=== PATIENT | female | born 1970 | race Caucasian/White ===

== ENCOUNTER 2024-04-04 15:04 | Emergency (ER) | payer BC, SELFPAY ==
[2024-04-04 15:13] VITALS: BP 144/91
--- NOTE | 2024-04-04 15:19 | ED.GENMED ---
ED Provider Triage
<Bk Ziegler PA-C - Last Filed: 04/04/24 15:23>
-
Patient seen by provider in Triage?: Seen in Triage
53-year-old otherwise healthy female with urinary symptoms over the past several days. She notes persistent urge to go. She is not urinating with a large volume. There has been no fever. The pain does radiate to her low back. She also has
lower abdominal discomfort with this. Skin initially at family doctor her urinalysis was negative and urine culture was negative. It did note some blood in the urine.
Will check labs out front and urine. Ordered CT with IV contrast due to lower abdominal pain. She also notes she is now moving her bowels.
History of Present Illness
<Bk Ziegler PA-C - Last Filed: 04/04/24 15:23>
General
Chief Complaint: Urinary Symptoms
Time Seen by Provider: 04/04/24 20:31
<Christiano Thomas Jr., PA-C - Last Filed: 04/04/24 23:35>
General
Source: patient
Exam Limitations: none
Nursing documentation reviewed up to this point in time: agreed with
History of Present Illness
History of Present Illness:
53-year-old female past medical history of ADHD presenting to the emergency department today with concerns of 1-1/2 weeks of increased urination and discomfort with urination. She was seen by the primary care doctor a week ago started on
antibiotics but only took this for a few days with no improvement. She also was found to have some red blood cells in her urine. Denies any fever chest pain shortness of breath denies similar symptoms in the past.
Past History
<Bk Ziegler PA-C - Last Filed: 04/04/24 15:23>
Past History
ED Past Medical History: Other (Previous back strain)
Review of Systems
<Christiano Thomas Jr., PA-C - Last Filed: 04/04/24 23:35>
Review of Systems
Allergies reviewed?: Yes
All Other Systems: ROS reviewed and negative except as documented in HPI and ROS
Phy Exam
<Christiano Thomas Jr., PA-C - Last Filed: 04/04/24 23:35>
Physical Exam
Physical Exam:
GENERAL: Alert , in no apparent distress
EYE: pupils equal and reactive
NECK: Supple, no significant adenopathy.
ENT: o/p clr, mmm.
CARDIAC: Regular rate and rhythm .
LUNGS: Clear breath sounds bilaterally, no acute respiratory distress, no wheezes/rales/rhonchi
ABDOMEN: Soft, without focal tenderness, no r/g, no cvat
NEUROLOGICAL: Alert and oriented, no focal neuro deficits
SKIN: Warm and dry, skin intact.
MUSCULOSKELETAL: No edema, well perfused.
PSYCH: Normal and appropriate interaction.
Course
<Bk Ziegler PA-C - Last Filed: 04/04/24 15:23>
Orders/Labs/Results
Orders:
Orders
04/04/24 15:19
CT Abd/pelvis W Iv Cont Urgent
Comment:
Reason For Exam: lower abdominal pain, dysuria
04/04/24 15:24
Complete Blood Count/With Diff Urgent
Comprehensive Metabolic Panel Urgent
04/04/24 15:26
Urinalysis Reflex To Culture Urgent
Date Specimen was Collected: 04/04/24
Time Specimen was Collected: 15:25
Urine Microscopic Reflex Cult Urgent
04/04/24 22:53
Cephalexin Monohydrate [Keflex] 500 mg PO NOW STA
HydrOXYZINE [Atarax] 25 mg PO NOW STA
Phenazopyridine HCl [Pyridium] 200 mg PO NOW STA
Abnormal Lab Results
04/04/24 04/04/24
15:24 15:26
MPV 10.9 H fL
(7.4-10.4)
Monocytes % 9.5 H %
(1.7-9.3)
Urine Ketones Trace A
(Negative)
Ur Occult Blood Reflex 4+ A
(Negative)
Leukocyte Esterase Rfl Trace A
(Negative)
Urine RBC 70-80 A /HPF
(0-2)
Urine Bacteria (Reflex) Few A
(Negative)
04/04/24 15:24
04/04/24 15:24
Vital Signs
Initial and Last Documented VS:
Initial Vital Signs
Temp Pulse Resp BP Pulse Ox
97.7 F 83 16 144/91 100
04/04/24 15:13 04/04/24 15:13 04/04/24 15:13 04/04/24 15:13 04/04/24 15:13
Last Documented Vital Signs
Temp Pulse Resp BP Pulse Ox
97.5 F 63 16 101/66 96
04/04/24 18:09 04/04/24 18:09 04/04/24 15:13 04/04/24 23:01 04/04/24 23:15
<Christiano Thomas Jr., PA-C - Last Filed: 04/04/24 23:35>
Orders/Labs/Results
Orders:
Orders
04/04/24 15:19
CT Abd/pelvis W Iv Cont Urgent
Comment:
Reason For Exam: lower abdominal pain, dysuria
04/04/24 15:24
Complete Blood Count/With Diff Urgent
Comprehensive Metabolic Panel Urgent
04/04/24 15:26
Urinalysis Reflex To Culture Urgent
Date Specimen was Collected: 04/04/24
Time Specimen was Collected: 15:25
Urine Microscopic Reflex Cult Urgent
04/04/24 22:53
Cephalexin Monohydrate [Keflex] 500 mg PO NOW STA
HydrOXYZINE [Atarax] 25 mg PO NOW STA
Phenazopyridine HCl [Pyridium] 200 mg PO NOW STA
Abnormal Lab Results
04/04/24 04/04/24
15:24 15:26
MPV 10.9 H fL
(7.4-10.4)
Monocytes % 9.5 H %
(1.7-9.3)
Urine Ketones Trace A
(Negative)
Ur Occult Blood Reflex 4+ A
(Negative)
Leukocyte Esterase Rfl Trace A
(Negative)
Urine RBC 70-80 A /HPF
(0-2)
Urine Bacteria (Reflex) Few A
(Negative)
04/04/24 15:24
04/04/24 15:24
Vital Signs
Initial and Last Documented VS:
Initial Vital Signs
Temp Pulse Resp BP Pulse Ox
97.7 F 83 16 144/91 100
04/04/24 15:13 04/04/24 15:13 04/04/24 15:13 04/04/24 15:13 04/04/24 15:13
Last Documented Vital Signs
Temp Pulse Resp BP Pulse Ox
97.5 F 63 16 101/66 96
04/04/24 18:09 04/04/24 18:09 04/04/24 15:13 04/04/24 23:01 04/04/24 23:15
<Christiano Thomas Jr., PA-C - Last Filed: 04/04/24 23:35>
MDM/Problems Addressed
MDM/Problems Addressed:
53-year-old female presenting to the emergency department today with concerns of urinary symptoms over the past week and a half. Here she had red blood cells in her urine small amount of white blood cells. Patient did have a CT scan without
emergent findings. Patient generally well-appearing no distress patient was started on antibiotics and given medications to help with symptoms otherwise will follow-up with urology. Return precautions given.
<Christiano Thomas Jr., PA-C - Last Filed: 04/04/24 23:35>
*Critical Care Note
Total Time (30-74mins, 75-104mins- exclusive of procedures): Not Applicable
ED Attending Note
<Bk Ziegler PA-C - Last Filed: 04/04/24 15:23>
-
Portions of this chart may have been created with voice recognition software.� Occasional wrong word or��sound alike� substitutions may have occurred due to the inherent limitations of voice recognition software.
Discharge Plan
Departure
Patient Disposition: Home (Routine Discharge)
Date of Disposition: 04/04/24
Time of Disposition: 23:00
Patient with high blood pressure during this ER visit?: No
Condition: Good
Covid-19: Not Applicable
Discharge Problem:
Dysuria
Instructions: Urinary Tract Infection, Adult (DC), Blood in the Urine (Hematuria), Adult (DC)
Prescriptions:
New
phenazopyridine 95 mg tablet
190 mg PO TID PRN (Reason: Pain) Qty: 12 0RF
cephalexin 500 mg capsule
500 mg PO TID 5 Days Qty: 15 0RF
No Action
cyclobenzaprine 10 MG tablet
10 mg PO TIDPRN PRN (Reason: Pain) Qty: 20 0RF
tramadol 50 MG tablet
50 mg PO Q6HPRN PRN (Reason: Pain) Qty: 20 0RF
Referrals:
Uday Olmstead Jr., MD [Active] - Follow up in 5-7 days
Anant Alarcon DO [Family Provider] -
Activity Restrictions/Additional Instructions:
You came to the emergency department today with concerns of urinary symptoms. Here had a reassuring assessment with no signs of emergent pathology your urine did have some red blood cells. Unclear if this could represent a urinary tract infection.
You were started on Keflex. Please follow closely with urology. Return to the emergency department for any worsening, new or concerning symptoms.
Interventions
Interventions:
*Risk Screen - Suicide Last Done: 04/04/24 15:17
*General Assessment Last Done: 04/04/24 22:32
*Neglect/Abuse Screening Last Done: 04/04/24 15:17
ED- Fall Risk Assessment Last Done: 04/04/24 22:32
*ED COVID-19 Vaccine History Last Done: 04/04/24 22:32
*Nursing Disposition Last Done: 04/04/24 23:27
ED-Female Genitourinary Assessment Last Done: 04/04/24 20:52
Discharge Date and Time
Discharge Date/Time: 04/04/24 23:28
Print Language: KENYAN
[2024-04-04 15:50] LABS: % Basophils 0.4 % (0-2); % Eosinophils 1.4 % (0-6); % Lymphocytes 32.2 % (20.5-51.1); % Monocytes 9.5 % (1.7-9.3); % Neutrophils 56.5 % (42.2-75.2); Absolute Eosinophils 0.1 10^3/uL (0-0.7); Absolute Lymphocytes 1.6 10^3/uL (1.2-3.4); Absolute Monocytes 0.5 10^3/uL (0.1-0.6); Absolute Neutrophils 2.8 10^3/uL (1.4-6.5); Hemoglobin 14.5 g/dL (12.0-16.0); Mean Corp Hgb Conc. 34.5 g/dL (33.0-37.0); Mean Corpuscular Hgb 30.2 pg (27.0-31.0); Mean Corpuscular Volume 87.5 fL (81.0-99.0); Mean Platelet Volume 10.9 fL (7.4-10.4); Nucleated Red Blood Cells % 0 %; Platelet Count 267 10^3/uL (130-400); Red Cell Dist. Width 12.3 % (11.5-14.5)
[2024-04-04 16:07] LABS: ALT (SGPT) 13 U/L (0-35); AST (SGOT) 25 U/L (14-36); Alkaline Phosphatase 58 U/L (38-126); Blood Urea Nitrogen 14 mg/dl (7-17); Calcium 10.2 mg/dl (8.4-10.2); Carbon Dioxide 25 mmol/L (22-30); Chloride 101 mmol/L (98-107); Glucose 91 mg/dl (70-99); Potassium 4.2 mmol/L (3.5-5.1); Sodium 141 mmol/L (135-145); Total Bilirubin 0.7 mg/dl (0.2-1.3); Total Protein 7.7 g/dl (6.3-8.2); eGFR > 60.00
[2024-04-04 16:16] LABS: Urine Albumin Trace (Neg - Trace); Urine Bilirubin Negative (Negative); Urine Character Clear (Clear); Urine Color Yellow; Urine Glucose Negative (Negative); Urine Ketone Trace (Negative); Urine Leukocyte Trace (Negative); Urine Nitrite Negative (Negative); Urine Occult Blood 4+ (Negative); Urine Urobilinogen Negative (Neg - 1+)
[2024-04-04 16:57] LABS: Urine Bacteria Few (Negative); Urine Hyaline Cast 0-2 /LPF (0-2); Urine Red Blood Cell 70-80 /HPF (0-2); Urine Squamous Cell >30 /LPF (Few)
[2024-04-04 18:09] VITALS: BP 113/76
[2024-04-04 20:51] VITALS: BMI 23.0
[2024-04-04 22:31] VITALS: BP 120/89
[2024-04-04 23:01] VITALS: BP 101/66
[2024-04-04] MEDS: ATARAX 25 MG PO (23:17)
[2024-04-04] MEDS: Pyridium 200 MG PO (23:17)
[2024-04-04] MEDS: KEFLEX 500 MG PO (23:17)
== END 2024-04-04 23:28 | disposition home or self-care (01) ==
LOC: EMR 15:04
PROVIDERS: Physician Assistant; EMERGENCY PHYSICIAN Emergency Medicine; FAMILY PHYSICIAN Family Medicine
DX: R30.0 Dysuria (principal); F90.9 Attention-deficit hyperactivity disorder, unspecified type
CPT/HCPCS: 99284; 74177; 80053; 81003; 81015; 85025; Q9967

== ENCOUNTER 2024-04-12 11:11 | Emergency (ER) | payer BC, SELFPAY ==
--- NOTE | 2024-04-12 11:13 | ED.GENMED ---
ED Provider Triage
<Opal Alegre PA-C - Last Filed: 04/12/24 11:18>
-
Patient seen by provider in Triage?: Seen in Triage
Attestation: A medical screening examination has been initiated by a qualified medical provider. Based on the assessment performed at this time, it has been determined that an emergent medical condition may exist and the patient has been informed
that further medical evaluation and possible additional diagnostic testing may be needed.
HPI: 53yoF here with UTI symptoms x 3 weeks. Seen in the ED last week for the same and prescribed Keflex. CT at that time was negative for acute findings. PCP stopped abx after urine culture came back negative. States she has not urinated in 24
hours. Thinks she passed a kidney stone today.
GENERAL: Alert , in no apparent distress
EYE: No visual abnormalities.
NECK: Trachea midline
ENT: No visible abnormalities.
LUNGS: No acute respiratory distress
NEUROLOGICAL: Alert and oriented
SKIN: Skin intact. No visible changes.
MUSCULOSKELETAL: Moving extremities normally
PSYCH: Normal and appropriate interaction.
This is a medical evaluation conducted in person to initiate diagnostic evaluation and provide initial therapeutics. Please see further documentation by the treating clinician.
CBC, CMP, UA, and bladder scan ordered.
History of Present Illness
<Opal Alegre PA-C - Last Filed: 04/12/24 11:18>
General
Chief Complaint: Urinary Symptoms
Time Seen by Provider: 04/12/24 12:46
<Corey Olguin DO - Last Filed: 04/12/24 13:21>
History of Present Illness
History of Present Illness:
TIME OF INITIAL ENCOUNTER: 12:50 PM
HPI: UTI symptoms x 3 weeks. Seen in the ED last week for the same and prescribed Keflex. CT at that time was negative for acute findings. PCP stopped abx after urine culture came back negative. States she has not urinated in 24 hours. She had
excruciating pain earlier today and called Dr. Olmstead's office and was sent here for further evaluation. In the interim, the patient did pass a stone. She now feels markedly improved.
EXAM:
GENERAL: Well appearing in no distress
HEENT: Moist oral mucosa
ABDOMEN: Soft with no peritoneal signs, no tenderness
NEUROLOGIC: Excellent strength all extremities, no coordination deficits
PSYCHIATRIC: Appropriate mental status, normal insight and judgement
EXTREMITIES: Nontender, no edema, moves all extremities equally
SKIN: No rash, no lesions
NUMBER AND COMPLEXITY OF PROBLEMS ADDRESSED AT THE ENCOUNTER
� Chronic conditions affecting care: ADHD
� Acute Exacerbation and/or Progression of Chronic Illness: This is an acute problem
� Differential Diagnosis includes: Ureteral stone, ureteral colic, pyelonephritis, UTI, urinary retention
AMOUNT AND/OR COMPLEXITY OF DATA TO BE REVIEWED AND ANALYZED
� I performed an independent evaluation of and my interpretation is:
EKG:
CT:
X-rays:
Laboratory Studies: Urinalysis shows 4+ blood, CBC and chemistries unremarkable
Other:
� Review of other/old records: I reviewed CT report from 04/04/2024 that showed no definite abnormality
� Clinical information was obtained by an independent historian: None needed
� Prescriptions/Medications Considered but not given:
� Further testing considered but not performed: I offered and considered CT imaging as the patient does have some very mild residual discomfort however given the radiation risks with virtually no significant pain currently we
agreed to hold off and she will return if worse.
RISK OF COMPLICATIONS AND/OR MORBIDITY OR MORTALITY OF PATIENT MANAGEMENT
� Social determinants of health affecting care:
� Discussion with other providers: See below�I spoke to Dr. Olmstead
� Escalation of care including admission/observation vs risk of discharge considered: The patient states she has had several bladder scans recently that were unremarkable. She did show me an object that is consistent with an
approximately 4 mm stone. I spoke to Dr. Olmstead who recommends sending for analysis and follow-up in 4 weeks.
ANY OTHER UPDATES:
1:15 PM: Remains comfortable in appearance
Past History
<Opal Alegre PA-C - Last Filed: 04/12/24 11:18>
Past History
ED Past Medical History: Other (Previous back strain)
Phy Exam
<Corey Olguin DO - Last Filed: 04/12/24 13:21>
Physical Exam
Physical Exam:
See HPI
Course
<Opal Alegre PA-C - Last Filed: 04/12/24 11:18>
Orders/Labs/Results
Orders:
Orders
04/12/24 11:17
Bladder Scan- Treatment ONCE
04/12/24 11:26
Complete Blood Count/With Diff Urgent
Comprehensive Metabolic Panel Urgent
04/12/24 11:28
Urinalysis Reflex To Culture Urgent
Date Specimen was Collected: 04/12/24
Time Specimen was Collected: 11:18
Urine Microscopic Reflex Cult Urgent
04/12/24 13:13
Stone Analysis With Image [S] Urgent
Abnormal Lab Results
04/12/24 04/12/24
11:26 11:28
MPV 10.5 H fL
(7.4-10.4)
Absolute Lymphs (auto) 1.1 L 10^3/uL
(1.2-3.4)
Ur Occult Blood Reflex 4+ A
(Negative)
04/12/24 11:26
04/12/24 11:26
Vital Signs
Initial and Last Documented VS:
Initial Vital Signs
Temp Pulse Resp BP Pulse Ox
97.7 F 76 16 118/77 98
04/12/24 11:14 04/12/24 11:14 04/12/24 11:14 04/12/24 11:14 04/12/24 11:14
Last Documented Vital Signs
Temp Pulse Resp BP Pulse Ox
97.7 F 76 16 118/77 98
04/12/24 11:14 04/12/24 11:14 04/12/24 11:14 04/12/24 11:14 04/12/24 11:14
<Corey Olguin, DO - Last Filed: 04/12/24 13:21>
Orders/Labs/Results
Orders:
Orders
04/12/24 11:17
Bladder Scan- Treatment ONCE
04/12/24 11:26
Complete Blood Count/With Diff Urgent
Comprehensive Metabolic Panel Urgent
04/12/24 11:28
Urinalysis Reflex To Culture Urgent
Date Specimen was Collected: 04/12/24
Time Specimen was Collected: 11:18
Urine Microscopic Reflex Cult Urgent
04/12/24 13:13
Stone Analysis With Image [S] Urgent
Abnormal Lab Results
04/12/24 04/12/24
11:26 11:28
MPV 10.5 H fL
(7.4-10.4)
Absolute Lymphs (auto) 1.1 L 10^3/uL
(1.2-3.4)
Ur Occult Blood Reflex 4+ A
(Negative)
04/12/24 11:26
04/12/24 11:26
Vital Signs
Initial and Last Documented VS:
Initial Vital Signs
Temp Pulse Resp BP Pulse Ox
97.7 F 76 16 118/77 98
04/12/24 11:14 04/12/24 11:14 04/12/24 11:14 04/12/24 11:14 04/12/24 11:14
Last Documented Vital Signs
Temp Pulse Resp BP Pulse Ox
97.7 F 76 16 118/77 98
04/12/24 11:14 04/12/24 11:14 04/12/24 11:14 04/12/24 11:14 04/12/24 11:14
<Corey Olguin DO - Last Filed: 04/12/24 13:21>
*Critical Care Note
Total Time (30-74mins, 75-104mins- exclusive of procedures): Not Applicable
ED Attending Note
<Opal Alegre PA-C - Last Filed: 04/12/24 11:18>
-
Portions of this chart may have been created with voice recognition software.� Occasional wrong word or��sound alike� substitutions may have occurred due to the inherent limitations of voice recognition software.
Discharge Plan
Departure
Patient Disposition: Home (Routine Discharge)
Date of Disposition: 04/12/24
Time of Disposition: 13:17
Patient with high blood pressure during this ER visit?: No
Discharge Problem:
Ureteral stone
Prescriptions:
No Action
cyclobenzaprine 10 MG tablet
10 mg PO TIDPRN PRN (Reason: Pain) Qty: 20 0RF
tramadol 50 MG tablet
50 mg PO Q6HPRN PRN (Reason: Pain) Qty: 20 0RF
phenazopyridine 95 mg tablet
190 mg PO TID PRN (Reason: Pain) Qty: 12 0RF
cephalexin 500 mg capsule
500 mg PO TID 5 Days Qty: 15 0RF
Referrals:
Uday Olmstead Jr., MD [Active] -
Anant Alarcon DO [Family Provider] -
Activity Restrictions/Additional Instructions:
At Dr. Olmstead's request, we sent the stone for analysis. Please follow-up with his office. He recommends he follow-up with his office in approximately 4 weeks. Your white blood cell count and kidney function are normal. There is no sign of
infection in the urine. You did have blood in the urine which is commonly seen with kidney stones. I do recommend [id number] ibuprofen for any residual mild discomfort. Return here if worse or other concerns.
Interventions
Interventions:
*Risk Screen - Suicide Last Done: 04/12/24 11:14
*General Assessment Last Done: 04/12/24 11:14
*Neglect/Abuse Screening Last Done: 04/12/24 11:14
*ED COVID-19 Vaccine History Last Done: 04/12/24 12:11
ED-Female Genitourinary Assessment Last Done: 04/12/24 12:12
Discharge Date and Time
Print Language: FIJIAN
[2024-04-12 11:14] VITALS: BP 118/77
[2024-04-12 11:34] LABS: % Basophils 0.2 % (0-2); % Eosinophils 0.8 % (0-6); % Immature Granulocytes 0.4 % (0-0.5); % Lymphocytes 20.6 % (20.5-51.1); % Monocytes 6.5 % (1.7-9.3); % Neutrophils 71.5 % (42.2-75.2); Absolute Lymphocytes 1.1 10^3/uL (1.2-3.4); Absolute Monocytes 0.3 10^3/uL (0.1-0.6); Absolute Neutrophils 3.7 10^3/uL (1.4-6.5); Hematocrit 38.4 % (37.0-47.0); Mean Corp Hgb Conc. 33.9 g/dL (33.0-37.0); Mean Corpuscular Volume 85.7 fL (81.0-99.0); Mean Platelet Volume 10.5 fL (7.4-10.4); Nucleated Red Blood Cells % 0 %; Platelet Count 262 10^3/uL (130-400); Red Blood Cell Count 4.48 10^6/uL (4.20-5.40); Red Cell Dist. Width 12.6 % (11.5-14.5); White Blood Cell Count 5.2 10^3/uL (4.8-10.8)
[2024-04-12 11:45] LABS: ALT (SGPT) 14 U/L (0-35); AST (SGOT) 23 U/L (14-36); Albumin 4.8 g/dl (3.5-5.0); Alkaline Phosphatase 51 U/L (38-126); Blood Urea Nitrogen 15 mg/dl (7-17); Calcium 9.9 mg/dl (8.4-10.2); Carbon Dioxide 24 mmol/L (22-30); Chloride 104 mmol/L (98-107); Glucose 98 mg/dl (70-99); Potassium 3.5 mmol/L (3.5-5.1); Sodium 139 mmol/L (135-145); Total Bilirubin 0.6 mg/dl (0.2-1.3); Total Protein 7.1 g/dl (6.3-8.2); eGFR > 60.00
[2024-04-12 12:07] LABS: Urine Albumin Trace (Neg - Trace); Urine Bilirubin Negative (Negative); Urine Character Clear (Clear); Urine Color Yellow; Urine Glucose Negative (Negative); Urine Ketone Negative (Negative); Urine Leukocyte Negative (Negative); Urine Nitrite Negative (Negative); Urine Occult Blood 4+ (Negative); Urine Specific Gravity 1.025 (<1.030); Urine Urobilinogen Negative (Neg - 1+)
[2024-04-12 12:11] VITALS: BMI 22.1
[2024-04-12 13:31] LABS: Urine Mucus Many
[2024-04-12 13:32] LABS: Urine Amorphous Seen
[2024-04-12 13:33] LABS: Urine Red Blood Cell 40-50 /HPF (0-2); Urine White Cell 0-2 /HPF (0-5)
== END 2024-04-12 13:30 | disposition home or self-care (01) ==
LOC: EMR 11:11
PROVIDERS: Physician Assistant; EMERGENCY PHYSICIAN Emergency Medicine; FAMILY PHYSICIAN Family Medicine
DX: N20.1 Calculus of ureter (principal)
CPT/HCPCS: 99283; 80053; 81003; 81015; 82365; 85025